=== PATIENT | female | born 1945 | race Caucasian/White ===

== ENCOUNTER 2018-08-25 05:21 | Inpatient (IN) | payer MEDICARE, OTHER | END 2018-08-27 10:51 | disposition home or self-care (01) | LOC: PAS IN 05:21 → ORTHO 4S 10:35 | PROC: 0SR90J9 Replacement of Right Hip Joint with Synthetic Substitute, Cemented, Open Approach (ICD-10-PCS; principal; 2018-08-25 07:14) | DX: M16.11 Unilateral primary osteoarthritis, right hip (principal) ==

== ENCOUNTER 2025-06-06 11:52 | Outpatient (CLI) | payer MEDICARE ==
[~2025-06-06 11:52] MED LIST: NO HOME MEDS
[2025-06-06 12:37] LABS: MEAN PLATELET VOLUME 7.0 FL (7.4-10.4); RED CELL DISTRIBUTION WIDTH 14.5 % (11.5-14.5)
[2025-06-06 13:45] LABS: LYMPHOCYTES % (MANUAL) 83.0 % (21-51); MONOCYTES % (MANUAL) 5.0 % (2-12); NEUTROPHILS % (MANUAL) 12.0 % (42-75)
[2025-06-06 13:46] LABS: PLATELET ESTIMATE NORMAL
== END 2025-06-06 23:59 | disposition home or self-care (01) ==
LOC: LAB 11:52
PROVIDERS: ATTEND Physician Assistant
DX: D72.820 Lymphocytosis (symptomatic) (principal)
CPT/HCPCS: 36415; 85007; 85025